=== PATIENT | male | born 1970 | race Caucasian/White ===

== ENCOUNTER 2018-02-13 17:11 | Emergency (ER) | payer OTHER, MEDICAID ==
[~2018-02-13] VITALS: Ht 152.4 cm; Wt 69.0 kg
[~2018-02-13 17:11] MED LIST: BACTRIM DS TAB1 EACH PO; CLONIDINE0.1; FLOMAX0.4 MG PO; MIRALAX17 GM PO; PROTONIX40 M4 PO; VIMPAT150 MG PO; ZESTRIL20 MG PO; ZPAK PO
[2018-02-13 19:16] VITALS: BP 128/80
== END 2018-02-13 19:17 | disposition home or self-care (01) ==
LOC: M.ERS 17:11
DX: R10.9 Unspecified abdominal pain (principal); R05 Cough; F42.9 Obsessive-compulsive disorder, unspecified; Z88.8 Allergy status to other drugs, medicaments and biological substances; Z88.0 Allergy status to penicillin

== ENCOUNTER → 2018-04-09 | Outpatient (CLI) | payer OTHER, MEDICAID ==
[2018-04-09 12:25] LABS: HEMATOCRIT 37.5 % (42.0-52.0); HEMOGLOBIN 11.4 gm/dL (14.0-18.0); MCH 21.6 pg (26.0-34.0); MCHC 30.5 g/dL (28.0-37.0); MCV 70.8 fL (80.0-100.0); MPV 7.9 fl. (7.2-11.1); RBC 5.3 mil/uL (4.50-6.00); RDW-CV 17.8 % (10.5-14.5); WBC 7.6 thou/uL (4.0-11.0)
[2018-04-09 12:39] LABS: ALBUMIN 4.1 g/dL (3.4-5.0); CALCIUM 9.8 mg/dL (8.5-10.1); CREATININE 0.9 mg/dL (0.6-1.3); TOTAL BILIRUBIN 0.4 mg/dL (<0.1-1.0)
--- NOTE | 2018-04-09 13:42 | EKG ---
[place] [address] ELECTROCARDIOGRAM REPORT Name: TRUDI IRENE Room: [facility]#: [id number] Admission: 04/09/18 Attend Phys: Whitney Bhatti MD Discharge: Date of : 70 Report #: [id number] THIS REPORT FOR: //name// [facility] Test Date: 2018-04-09 Test Time: 11:59:44 Pat Name: TRUDI IRENE Department: Room: Gender: M Yoga Instructor: : 1970 Requested By: Whitney Bhatti Order Number: [id number] Reading MD: Juan Valadez Measurements Intervals [place] Rate: 69 P: 60 SC: 176 QRS: 17 QRSD: 86 T: 42 QT: 359 QTc: 385 Interpretive Statements Sinus rhythm Compared to ECG 03/04/2006 16:12:19 No significant changes Electronically Signed On 04-09-2018 13:42:26 CDT by Juan Valadez [email or web address] <ELECTRONICALLY SIGNED> By: Juan Valadez MD, [facility] 04/09/18 1342 [id number] Juan Valadez MD, FACC /EPI
== END ==
LOC: M.LAB 11:41
PROVIDERS: Family Medicine
DX: Z01.818 Encounter for other preprocedural examination (principal)

== ENCOUNTER → 2019-04-17 | Outpatient (CLI) | payer OTHER, MEDICAID | LOC: M.ULTRA 14:19 | DX: I82.512 Chronic embolism and thrombosis of left femoral vein (principal); I82.532 Chronic embolism and thrombosis of left popliteal vein; Z79.899 Other long term (current) drug therapy; Z88.0 Allergy status to penicillin; Z88.8 Allergy status to other drugs, medicaments and biological substances ==